=== PATIENT | male | born 1970 | race Caucasian/White ===

== ENCOUNTER 2021-01-09 08:34 | Emergency (ER) | payer MEDICAID ==
--- NOTE | 2021-01-09 08:52 | ED Physician Documentation ---
PD HPI ABD PAIN - Stated complaint Stated Complaint: ABD PX - History obtained from History obtained from: Patient (For about 4-5 weeks he has had pelvic pain radiating up towards the umbilicus and to either side. It is worse with bending and twisting.) - Additional information Additional information: He thinks it might be muscular. He is not eating and drinking well the past mostly because of anxiety and depression related to an ongoing divorce. Had remote open appendectomy at age 25. Otherwise no abdominal surgeries. No significant nausea, if he has some he thinks it is related to the divorce, not the abdominal pain. No weight loss. Review of Systems Ten Systems: 10 systems reviewed and negative Constitutional: reports: Reviewed and negative Throat: reports: Reviewed and negative Cardiac: reports: Reviewed and negative Respiratory: reports: Reviewed and negative PD PAST MEDICAL HISTORY - Past Medical History GI: GERD - Past Surgical History Past Surgical History: Yes General: Appendectomy - Present Medications Home Medications: Ambulatory Orders Medication Instructions Recorded Confirmed Budesonide [Ortikos] 9 mg PO DAILY #30 01/09/21 - Allergies Allergies/Adverse Reactions: Allergies Allergy/AdvReac Type Severity Reaction Status Date / Time No Known Drug Allergies Allergy Verified 01/09/21 08:56 - Social History Does the pt smoke?: Yes Smoking Status: Current every day smoker Does the pt drink ETOH?: Yes Does the pt have substance abuse?: No - Immunizations Immunizations are current?: Yes PD ED PE NORMAL - Vitals Vital signs reviewed: Yes - General General: Alert and oriented X 3, Other (Tearful at times with poor eye contact) - HEENT HEENT: PERRL, EOMI - Neck Neck: Supple, no meningeal sign, No bony TTP - Cardiac Cardiac: RRR, No murmur - Respiratory Respiratory: No respiratory distress, Clear bilaterally - Abdomen Abdomen: Normal bowel sounds, Soft, Non tender - Male Male : Other (No testicular swelling or TTP, nl lie, nl cremasters B) - Back Back: No CVA TTP, No spinal TTP - Derm Derm: Normal color, Warm and dry - Extremities Extremities: No edema, No calf tenderness / cord - Neuro Neuro: Alert and oriented X 3, Normal speech Results - Vitals Vitals: Vital Signs - 24 hr 01/09/21 01/09/21 01/09/21 08:40 09:00 11:15 Temperature 36.7 C Heart Rate 95 85 70 Respiratory 16 16 16 Rate Blood Pressure 144/98 H 117/80 110/70 O2 Saturation 96 95 Oxygen O2 Source Room air - Labs Labs: Laboratory Tests 01/09/21 01/09/21 09:05 09:05 WBC 16.6 H RBC 5.12 Hgb 15.9 Hct 45.7 MCV 89.3 MCH 31.1 H MCHC 34.8 RDW 12.8 Plt Count 385 MPV 8.7 Neut # (Auto) 12.9 H Lymph # (Auto) 2.4 [place] # (Auto) 0.9 Eos # (Auto) 0.2 Baso # (Auto) 0.1 Absolute Nucleated RBC 0.00 Nucleated RBC % 0.0 Sodium 141 Potassium 3.9 Chloride 102 Carbon Dioxide 23 Anion Gap 16.0 H BUN 17 Creatinine 0.7 Estimated GFR (MDRD) 119 Glucose 117 H Calcium 9.5 Total Bilirubin 0.9 AST 18 ALT 19 Alkaline Phosphatase 65 Total Protein 7.7 Albumin 4.1 Globulin 3.6 Albumin/Globulin Ratio 1.1 Lipase 47 PD MEDICAL DECISION MAKING - ED course ED course: 50-year-old gentleman presents with pelvic pain, normal testicular exam. CT consistent with colitis. The timeframe would suggest that infection is not on the differential. Will start oral budesonide pending follow-up and he knows he needs a colonoscopy. He talked at length with the perinatal social worker about his marital issues. Departure - Departure Disposition: 01 Home, Self Care Clinical Impression: Colitis, Grief reaction Condition: Good Record reviewed to determine appropriate education?: Yes Instructions: ED Abdominal Pain Unkn Cause Male Prescriptions: Budesonide [Ortikos] 9 mg PO DAILY #30 Comments: Work-up today demonstrates that your CAT scan shows some evidence of infla mmation of the colon. There are a variety of reasons for this that can happen, but seems reasonable to put you on the anti-inflammatory steroid until you follow-up. You do need to follow-up With your PCP and subsequently a bead supervisor or general surgeon and get repeat colonoscopy since it has been 10 years. Return if worsening. Discharge Date/Time: 01/09/21 11:34
[2021-01-09] MEDS ORDERED: IOVERSOL 320 100 ML VIAL IVP ONE ×2 (09:06→15:09)
[2021-01-09 09:14] LABS: BASOPHILS # (AUTO) 0.1 10^3/uL (0.0-0.1); BASOPHILS % (AUTO) 0.5 %; EOSINOPHILS # (AUTO) 0.2 10^3/uL (0.0-0.7); HGB - HEMOGLOBIN 15.9 g/dL (14.0-18.0); LYMPHOCYTES # (AUTO) 2.4 10^3/uL (1.5-3.5); LYMPHOCYTES % (AUTO) 14.7 %; MEAN CORPUSCULAR HEMOGLOBIN 31.1 pg (27.0-31.0); MEAN CORPUSCULAR HGB CONC 34.8 g/dL (32.0-36.0); MEAN CORPUSCULAR VOLUME 89.3 fL (80.0-94.0); MEAN PLATELET VOLUME 8.7 fL (7.4-11.4); MONOCYTES # (AUTO) 0.9 10^3/uL (0.0-1.0); MONOCYTES % (AUTO) 5.7 %; NEUTROPHILS # (AUTO) 12.9 10^3/uL (1.5-6.6); NEUTROPHILS % (AUTO) 77.7 %; PLT - PLATELET COUNT 385 10^3/uL (130-450); RED BLOOD COUNT 5.12 10^6/uL (4.70-6.10); RED CELL DISTRIBUTION WIDTH 12.8 % (12.0-15.0); WHITE BLOOD COUNT 16.6 x10^3/uL (4.8-10.8)
[2021-01-09 09:28] LABS: ALBUMIN 4.1 g/dL (3.2-5.5); ALBUMIN/GLOBULIN RATIO 1.1 (1.0-2.2); BILIRUBIN,TOTAL 0.9 mg/dL (0.2-1.0); CALCIUM 9.5 mg/dL (8.5-10.3); CREATININE 0.7 mg/dL (0.6-1.2); TOTAL PROTEIN 7.7 g/dL (6.7-8.2)
--- NOTE | 2021-01-09 10:49 | CT Report ---
PROCEDURE: Abdomen/Pelvis W INDICATIONS: iv only low abd pain CONTRAST: IV CONTRAST: Optiray 320 ml: 100 PO CONTRAST: *NO PO CONTRAST TECHNIQUE: After the administration of IV contrast, 5 mm thick sections acquired from the diaphragms to the symp hysis. 5 mm thick coronal and sagittal reformats were acquired. For radiation dose reduction, the f ollowing was used: automated exposure control, adjustment of mA and/or kV according to patient size. COMPARISON: None. FINDINGS: Image quality: Excellent. ABDOMEN: Lung bases: Lung bases are clear. Heart size is normal. Solid organs: Liver mildly prominent with steatosis. The spleen is normal in size and enhancement. Gallbladder is unremarkable Biliary system is non dilated. Pancreas enhances normally. No adrenal nodules. Kidneys demonstrate normal size and enhancement, without hydronephrosis. Incidental note o f a retroaortic left renal vein. Peritoneum and bowel: Bowel loops are nonobstructed. There is a minimal appearance of being within t he ascending and portions of the transverse colon without inflammatory change. No free fluid or air. Nodes and vessels: No retroperitoneal or mesenteric adenopathy by size criteria. Aorta and inferior vena cava are normal in size. Miscellaneous: No ventral hernias. PELVIS: Genitourinary: Bladder wall thickness is normal. Miscellaneous: Fat-containing inguinal hernias. Bones: No suspicious bony lesions. No vertebral body compression fractures. IMPRESSION: 1. Mild appearance of thickening within the ascending and transverse colon as above. No pericolonic i nflammatory change. This could be secondary to incomplete distention or very early appearance of coli tis and clinical correlation is recommended. Otherwise, no acute process is noted. Reviewed by: Aga Merida MD on 01/09/2021 9:48 AM [facility] Approved by: Aga Merida MD on 01/09/2021 9:48 AM [facility] Station ID: [id number]
[2021-01-09 11:33] VITALS: BP 110/70
== END 2021-01-09 11:34 | disposition home or self-care (01) ==
LOC: ED 08:34
DX: K52.9 Noninfective gastroenteritis and colitis, unspecified (principal); F43.23 Adjustment disorder with mixed anxiety and depressed mood; F17.200 Nicotine dependence, unspecified, uncomplicated
CPT/HCPCS: 36415; 74177; 80053; 83690; 85025; 99283; 99284; Q9967

== ENCOUNTER 2022-04-18 08:00 | Outpatient (CLI) | payer MEDICAID ==
--- NOTE | 2022-04-18 14:11 | XRAY Report ---
PROCEDURE: Knee 2 View RT INDICATIONS: PAIN IN RIGHT KNEE TECHNIQUE: 2 views of the right knee(s) were acquired. COMPARISON: None. FINDINGS: Bones: No fractures or dislocations. No suspicious bony lesions. Mild osteoarthritic degenerative c hanges noted in all 3 compartments of the right knee. Soft tissues: No joint effusion. No suspicious soft tissue calcifications. Mild prepatellar soft t issue swelling is noted. IMPRESSION: Mild right knee tricompartmental osteoarthritis. Mild prepatellar soft tissue swelling is noted. Finding is nonspecific but can be related to prepatel lar bursitis. Please correlate with clinical findings. Reviewed by: Rosemary Alfredo MD, PhD on 04/18/2022 2:10 PM PDT Approved by: Rosemary Alfredo MD, PhD on 04/18/2022 2:10 PM PDT Station ID: [id number]
== END 2022-04-18 23:59 | disposition home or self-care (01) ==
LOC: DI.N 08:00
PROVIDERS: ATTEND Physician Assistant Medical
DX: M17.11 Unilateral primary osteoarthritis, right knee (principal); M79.89 Other specified soft tissue disorders

== ENCOUNTER 2022-04-30 10:04 | Outpatient (CLI) | payer MEDICAID ==
--- NOTE | 2022-04-30 15:03 | Ultrasound Report ---
PROCEDURE: Chest INDICATIONS: LIPOMA BACK TECHNIQUE: Real-time scanning was performed, and a suitable site was marked by the telephone messenger for thoracentesis to be performed by the referring clinician. COMPARISON: None. FINDINGS: There is a 6.5 x 1.7 x 4.3 cm soft tissue mass in the region of clinical interest. Doppler evaluation demonstrates no significant internal vascularity or peripheral vascularity. IMPRESSION: Nonspecific 6.5 x 1.7 x 4.3 cm soft tissue density mass in the area of clinical interest. Lesion may represent a lipoma, however other etiologies including malignancy can't be differentiated by ultrasou nd imaging. Decision to biopsy should be based on clinical assessment. Reviewed by: Rosemary Alfredo MD, PhD on 04/30/2022 3:01 PM PDT Approved by: Rosemary Alfredo MD, PhD on 04/30/2022 3:01 PM PDT Station ID: [id number]
== END 2022-04-30 10:05 | disposition home or self-care (01) ==
LOC: DI 10:04
PROVIDERS: ATTEND Physician Assistant Medical
DX: D17.1 Benign lipomatous neoplasm of skin and subcutaneous tissue of trunk (principal); R22.2 Localized swelling, mass and lump, trunk

== ENCOUNTER 2022-06-11 08:21 | Outpatient (CLI) | payer MEDICAID | END 2022-06-11 08:22 | disposition home or self-care (01) | LOC: LAB.N 08:21 | PROVIDERS: ATTEND Surgery | DX: Z01.812 Encounter for preprocedural laboratory examination (principal); D17.1 Benign lipomatous neoplasm of skin and subcutaneous tissue of trunk; Z20.822 Contact with and (suspected) exposure to COVID-19 ==

== ENCOUNTER 2022-06-12 10:57 | Day surgery (SDC) | payer MEDICAID ==
[2022-06-12] MEDS ORDERED: LACTATED RINGERS 1,000 ML IV ONE (11:03)
--- NOTE | 2022-06-12 11:58 | ANESTHESIA ---
Pre-Anesthesia VS, & Labs - Diagnosis Lipoma back - Procedure Excision lipoma Vital Signs: Temp Pulse Resp BP Pulse Ox 36.4 C L 63 16 129/80 97 06/12/22 11:03 06/12/22 11:03 06/12/22 11:03 06/12/22 11:03 06/12/22 11:03 Height: 5 ft 7 in Weight (kg): 79.6 kg Body Mass Index: 27.4 BMI Classification: Overweight - NPO >8 hours - Lab Results Lab results reviewed: Yes Home Medications and Allergies Home Medications: Ambulatory Orders buPROPion [Wellbutrin Xl] 75 mg PO DAILY 06/10/22 hydrOXYzine HCL [Hydroxyzine HCl] 25 mg PO DAILY 06/12/22 buPROPion [Wellbutrin Xl] 75 mg PO DAILY 06/10/22 hydrOXYzine HCL [Hydroxyzine HCl] 25 mg PO DAILY 06/12/22 Allergies/Adverse Reactions: Allergies Allergy/AdvReac Type Severity Reaction Status Date / Time No Known Drug Allergies Allergy Verified 01/09/21 08:56 Anes History & Medical History - Anesthetic History Anesthesia Complications: reports: No previous complications Family history of Anesthesia Complications: Denies Family history of Malignant Hyperthermia: Denies - Medical History Cardiovascular: reports: None, High cholesterol Pulmonary: reports: None Gastrointestinal: reports: Chronic diarrhea Urinary: reports: None Neuro: reports: None Musculoskeletal: reports: None Blood Disorders: reports: None Skin: reports: None Smoking Status: Former smoker Psychosocial: reports: Depression, Anxiety, Alcohol, Cannabis History of Cancer?: No - Surgical History General: reports: Appendectomy, Colonoscopy Orthopedic: reports: Shoulder arthroplasty Exam General: Alert, Oriented x3 Dental: WNL Mouth Openin Fingerbreadth Neck Mobility: Normal Mallampati classification: III Thyromental Distance: 4-6 cm Respiratory: Lungs clear, Normal breath sounds Cardiovascular: Regular rate, Normal S1, Normal S2, No murmurs Mental/Cognitive Status: Alert/Oriented X3, Normal for patient Cognitive Status: Within normal limits Plan Anesthesia Type: General Consent for Procedure(s) Verified and Reviewed: Yes Code Status: Attempt Resuscitation ASA classification: 2-Mild systemic disease Is this case an emergency?: No
[2022-06-12] MEDS ORDERED: MORPHINE 2 MG/ML CARPUJECT IVP PRN ×2 (11:59→16:30)
[2022-06-12] MEDS ORDERED: fentaNYL 100 MCG/2 ML VIAL IVP PRN ×2 (11:59→16:30)
[2022-06-12] MEDS ORDERED: ePHEDrine 50 MG/ML VIAL IVP PRN ×2 (11:59→16:30)
[2022-06-12] MEDS ORDERED: HYDROmorphone 0.5 MG/0.5 ML SYRINGE IVP PRN ×2 (11:59→16:30)
[2022-06-12] MEDS ORDERED: NALOXONE 0.4 MG/ML VIAL IVP PRN ×2 (11:59→16:30)
[2022-06-12] MEDS ORDERED: ATROPINE ABBOJECT 1 MG/10 ML SYRINGE IVP PRN ×2 (11:59→16:30)
[2022-06-12] MEDS ORDERED: ONDANSETRON 4 MG/2 ML VIAL IVP PRN ×2 (11:59→16:30)
[2022-06-12] MEDS ORDERED: LACTATED RINGERS 1,000 ML IV SCH ×2 (12:00→16:30)
[2022-06-12] MEDS ORDERED: LIDOCAINE-MPF 2% 5 ML VIAL ONE (12:42)
[2022-06-12] MEDS ORDERED: DEXAMETHASONE 4 MG/ML VIAL ONE (12:42)
[2022-06-12] MEDS ORDERED: ONDANSETRON 4 MG/2 ML VIAL ONE (12:42)
[2022-06-12] MEDS ORDERED: PROPOFOL 200 MG/20 ML VIAL IVP ONE ×2 (12:42→14:42)
[2022-06-12] MEDS ORDERED: fentaNYL 100 MCG/2 ML VIAL ONE ×2 (12:43→16:18)
[2022-06-12] MEDS ORDERED: KETAMINE 500 MG/10 ML VIAL ONE (12:43)
[2022-06-12] MEDS ORDERED: MIDAZOLAM 2 MG/2 ML VIAL ONE (12:43)
[2022-06-12] MEDS ORDERED: SODIUM CHLORIDE 0.9% 10 ML VIAL IVP ONE (12:44)
[2022-06-12] MEDS ORDERED: BUPIVACAINE 0.25% PF 10 ML VIAL ONE (14:07)
[2022-06-12] MEDS ORDERED: LIDOCAINE 2%-EPI 1:100000 20 ML MDV ONE (14:07)
[2022-06-12] MEDS ORDERED: BUPIVACAINE 0.25% PF 30 ML VIAL SUBQ ONE (14:46)
[2022-06-12] MEDS ORDERED: LACTATED RINGERS 100 ML IV ONE (15:49)
[2022-06-12] MEDS ORDERED: oxyCODONE 5 MG TABLET PO PRN (16:05)
--- NOTE | 2022-06-12 16:16 | OPERATIVE REPORT ---
Operative Report - General Planned Procedure: excision left upper back 3 x 7 cm lipoma and excision mid lower back 3x 3 cm lipoma Pre-Op Diagnosis: growing and painful back lipomas Procedure Performed: as above 5 and 3 cm intermediate repair Post Op Diagnosis: symptomatic back lipomas - Procedure Note Primary Surgeon: kenney corral Anesthesia Technique: General LMA, Local Pathology: benign/ not sent Estimated Blood Loss (mL): 1 Drain/Tube Type: Other (none) Indications: growing and painful back lipomas Findings: as above Complications: none - Other Other Information/Narrative: Patient was properly identified brought to the operating room and placed in supine position. Laryngeal mask anesthesia was induced. Carefully repositioned right lateral decubitus. He was prepped and draped in a sterile fashion. Antibiotics were not given. The lipomas were marked prior to coming back to surgery. Local anesthetic was given. The left upper back lipoma was first addressed. Vertical incision was made. Lipoma was removed in its entirety with gentle retraction and cautery. Hemostasis was assured. Immediate repair was then performed. Skin flaps were closed back down with interrupted 2-0 Vicryl suture. Deep dermis was reapproximated with buried interrupted 2-0 Vicryl suture. Additional 3-0 Vicryl subdermal sutures were placed. Was closed with a running 4-0 Monocryl subcuticular suture. The mid lower back lipoma was then addressed. A vertical incision was again made. Lipoma was removed with gentle retraction and cautery. Dermis was closed with interrupted 2-0 Vicryl suture followed by interrupted 3-0 Vicryl suture. Skin was closed with a running 4-0 Monocryl subcuticular suture. Dressings were applied. He was repositioned supine awakened and brought to recovery in good condition.
--- NOTE | 2022-06-12 16:50 | ANESTHESIA POST OP EVALUATION ---
Anesthesia Post Eval - Post Anesthesia Eval Vitals: Last Vital Signs Temp 36.6 C 06/12/22 16:30 Pulse 52 L 06/12/22 16:30 Resp 14 06/12/22 16:30 BP 154/87 H 06/12/22 16:30 Pulse Ox 97 06/12/22 16:30 CV Function Including HR & BP: Stable Pain Control: Satisfactory Nausea & Vomiting: Negative Mental Status: Baseline Respiratory Status: Airway Patent Hydration Status: Satisfactory Anesthesia Complications: None
[2022-06-12 16:54] VITALS: BP 154/84
== END 2022-06-12 10:58 | disposition home or self-care (01) ==
LOC: SDS 10:57
PROVIDERS: ATTEND Surgery
DX: D17.1 Benign lipomatous neoplasm of skin and subcutaneous tissue of trunk (principal); Z87.891 Personal history of nicotine dependence
CPT/HCPCS: 21931; J7120

== ENCOUNTER 2022-09-19 08:32 | Emergency (ER) | payer MEDICAID ==
--- NOTE | 2022-09-19 08:41 | ED Physician Documentation ---
PD HPI ABD PAIN - Stated complaint Stated Complaint: ABNOMINAL PX - History obtained from History obtained from: Patient - History of Present Illness Timing - onset: How many weeks ago (2) Timing - duration: Weeks (2) Timing - details: Gradual onset (started later in day after lifting heavy totes and carrying objects.), Still present Quality: Aching, Dull, Pain Location: RLQ Radiation: Right flank Worsened by: Moving, Position. No: Eating, Breathing Associated symptoms: Loss of appetite. No: Fever, Nausea, Vomiting, Diarrhea, Constipation, Dysuria Review of Systems Constitutional: denies: Fever Nose: denies: Rhinorrhea / runny nose, Congestion Throat: denies: Sore throat Cardiac: denies: Chest pain / pressure, Palpitations Respiratory: denies: Cough GI: reports: Abdominal Pain, Nausea. denies: Abdominal Swelling, Vomiting, Constipation : denies: Dysuria PD PAST MEDICAL HISTORY - Past Medical History Cardiovascular: None, High cholesterol Respiratory: None Neuro: None GI: Chronic diarrhea : None Psych: Depression, Anxiety, Panic attacks, Post traumatic stress disorder Musculoskeletal: None Derm: None - Past Surgical History Past Surgical History: Yes General: Appendectomy, Colonoscopy Ortho: Shoulder arthroplasty - Present Medications Home Medications: Ambulatory Orders Medication Instructions Recorded Confirmed buPROPion [Wellbutrin Xl] 75 mg PO DAILY 06/10/22 06/12/22 hydrOXYzine HCL [Hydroxyzine HCl] 25 mg PO DAILY 06/12/22 06/12/22 oxyCODONE/ACET 5/325 [Percocet 5 1 each PO Q4-6H PRN #20 tablet 06/12/22 mg/325 mg] Docusate Sodium 100Mg Capsule 100 mg PO DAILY #20 cap 09/19/22 [Colace 100Mg Capsule] Naproxen 500 mg PO BID #20 tab 09/19/22 - Allergies Allergies/Adverse Reactions: Allergies Allergy/AdvReac Type Severity Reaction Status Date / Time No Known Drug Allergies Allergy Verified 01/09/21 08:56 - Social History Does the pt smoke?: Yes Smoking Status: Former smoker Does the pt drink ETOH?: Yes Does the pt have substance abuse?: No - Immunizations Immunizations are current?: Yes PD ED PE NORMAL - Vitals Vital signs reviewed: Yes - General General: Alert and oriented X 3, Well developed/nourished, Other (appearing unc omfortable due to abd and back pain.) - Neck Neck: Supple, no meningeal sign, No adenopathy - Cardiac Cardiac: RRR, No murmur - Respiratory Respiratory: Clear bilaterally - Abdomen Abdomen: Soft, Non distended, No organomegaly, Other (tender in right lower abd without percussion nor rebound tenderness. ) - Male Male : Deferred - Rectal Rectal: Deferred - Back Back: No CVA TTP - Derm Derm: Normal color, Warm and dry, No rash - Extremities Extremities: No edema, No calf tenderness / cord - Neuro Neuro: Alert and oriented X 3, No motor deficit, Normal speech Results - Vitals Vitals: Oxygen O2 Source Room air - Labs Labs: Laboratory Tests 09/19/22 09/19/22 09/19/22 09:05 09:10 09:35 WBC 8.4 RBC 4.86 Hgb 14.0 Hct 42.6 MCV 87.7 MCH 28.8 MCHC 32.9 RDW 13.1 Plt Count 377 MPV 9.5 Neut # (Auto) 4.9 Lymph # (Auto) 2.4 [place] # (Auto) 0.7 Eos # (Auto) 0.2 Baso # (Auto) 0.1 Absolute Nucleated RBC 0.00 Nucleated RBC % 0.0 Sodium 135 Potassium 4.0 Chloride 101 Carbon Dioxide 26 Anion Gap 8.0 BUN 14 Creatinine 0.7 Estimated GFR (MDRD) 118 Glucose 110 H Calcium 8.8 Total Bilirubin 0.5 AST 17 ALT 19 Alkaline Phosphatase 56 Total Protein 7.0 Albumin 4.0 Globulin 3.0 Albumin/Globulin Ratio 1.3 Lipase 43 Urine Color YELLOW Urine Clarity CLEAR Urine pH 5.5 Ur Specific [place] >=1.030 H Urine Protein NEGATIVE Urine Glucose (UA) NEGATIVE Urine Ketones NEGATIVE Urine Occult Blood NEGATIVE Urine Nitrite NEGATIVE Urine Bilirubin NEGATIVE Urine Urobilinogen 0.2 (NORMAL) Ur Leukocyte Esterase NEGATIVE Ur Microscopic Review NOT INDICATED Urine Culture Comments NOT INDICATED - Rads (name of study) abd /pelvic CT Radiology: Prelim report reviewed, See rad report PD MEDICAL DECISION MAKING - ED course Complexity details: reviewed results, considered differential (no ever, normal WBC. Subtle finding of possible colitis on CT. can treat with anti- inflammatories. Seems muscular actually so same meds. ), d/w patient Departure - Departure Disposition: 01 Home, Self Care Clinical Impression: Lower abdominal pain, Umbilical hernia Condition: Stable Record reviewed to determine appropriate education?: Yes Instructions: ED Hernia Inguinal Follow-Up: Sunni Schilling ARNP [Primary Care Provider] - [facility] [Provider Group] Prescriptions: Docusate Sodium 100Mg Capsule [Colace 100Mg Capsule] 100 mg PO DAILY #20 cap Naproxen 500 mg PO BID #20 tab Comments: Your CT scan shows a an umbilical hernia containing just soft tissue/fatty tissue. No signs of inflammation around it. This is close to your area of pain however and so may be causing your discomfort with an acute stretching of the s oft tissue leading to the hernia now. The CT scan also showed a possible area of mild inflammation along the sigmoid colon. This might be causing some of your discomfort but is probably more of a inconsequential finding. Your pain may be just more muscular from the lifting and just some abdominal wall strain. Collectively the above possibilities would all be treated with anti- inflammatories and moderated activity (if it hurts to do it do not do it). Add Tylenol if needed for pains. Also would suggest a mild stool softener as part of her treatment for hernia. Follow-up with the surgical office for more discussion about the hernia and whether it needs treatment or repair or just see if it quiets down and stops hurting. I included discharge instructions For inguinal hernia which is not what you have, you have an umbilical hernia, but the main information and things to watch for are the same. Discharge Date/Time: 09/19/22 11:58
[2022-09-19] MEDS ORDERED: KETOROLAC 15 MG/ML VIAL IVP STA (08:57)
[2022-09-19 09:12] LABS: BILIRUBIN,URINE NEGATIVE (NEGATIVE); GLUCOSE, URINE (UA) NEGATIVE (NEGATIVE); KETONES,URINE (UA) NEGATIVE (NEGATIVE); LEUKOCYTE ESTERASE, URINE NEGATIVE (NEGATIVE); NITRITE,URINE NEGATIVE (NEGATIVE); OCCULT BLOOD,URINE NEGATIVE (NEGATIVE); PH,URINE 5.5 PH (5.0-7.5); PROTEIN,URINE NEGATIVE (NEGATIVE); UROBILINOGEN,URINE 0.2 (NORMAL) E.U./dL (NORMAL)
[2022-09-19 09:16] LABS: CLARITY,URINE CLEAR (CLEAR)
[2022-09-19 09:27] LABS: BASOPHILS # (AUTO) 0.1 10^3/uL (0.0-0.1); EOSINOPHILS # (AUTO) 0.2 10^3/uL (0.0-0.7); EOSINOPHILS % (AUTO) 2.6 %; HCT - HEMATOCRIT 42.6 % (42.0-52.0); LYMPHOCYTES # (AUTO) 2.4 10^3/uL (1.5-3.5); LYMPHOCYTES % (AUTO) 28.9 %; MEAN CORPUSCULAR HEMOGLOBIN 28.8 pg (27.0-31.0); MEAN CORPUSCULAR HGB CONC 32.9 g/dL (32.0-36.0); MEAN CORPUSCULAR VOLUME 87.7 fL (80.0-94.0); MEAN PLATELET VOLUME 9.5 fL (7.4-11.4); MONOCYTES # (AUTO) 0.7 10^3/uL (0.0-1.0); MONOCYTES % (AUTO) 8.4 %; NEUTROPHILS # (AUTO) 4.9 10^3/uL (1.5-6.6); NEUTROPHILS % (AUTO) 58.6 %; PLT - PLATELET COUNT 377 10^3/uL (130-450); RED BLOOD COUNT 4.86 10^6/uL (4.70-6.10); RED CELL DISTRIBUTION WIDTH 13.1 % (12.0-15.0); WHITE BLOOD COUNT 8.4 x10^3/uL (4.8-10.8)
[2022-09-19] MEDS ORDERED: iohexoL-300 100 ML VIAL ONE (09:37)
[2022-09-19 09:52] LABS: ALBUMIN/GLOBULIN RATIO 1.3 (1.0-2.2); BILIRUBIN,TOTAL 0.5 mg/dL (0.2-1.0); CALCIUM 8.8 mg/dL (8.5-10.3); CREATININE 0.7 mg/dL (0.6-1.2)
[2022-09-19] MEDS ORDERED: iohexoL-300 100 ML VIAL IVP ONE (10:24)
--- NOTE | 2022-09-19 10:42 | CT Report ---
PROCEDURE: ABDOMEN/PELVIS W INDICATIONS: Abdominal pain, acute, lower abd CONTRAST: 100ml omni 300 TECHNIQUE: After the administration of intravenous contrast, 5 mm thick sections acquired from the diaphragms to the symphysis. 5 mm thick coronal and sagittal reformats were acquired. For radiation dose reducti on, the following was used: automated exposure control, adjustment of mA and/or kV according to hemanth ent size. COMPARISON: None. FINDINGS: Image quality: Excellent Lower chest: Suspected basal scarring/atelectasis. Solid organs: Liver is unremarkable. Pancreaticobiliary system is unremarkable. No splenomegaly. No a drenal nodules. No hydronephrosis. Vessels and lymph nodes: No abdominal aortic aneurysm. The main portal vein is patent. Retroaortic le ft renal vein. No pathologic adenopathy. Bowel and peritoneum: No bowel obstruction. No pathologic ascites. There are colonic diverticula. Mil d pericolonic fat stranding around the sigmoid colon and distal descending colon. Body wall: Fat-containing umbilical hernia. Pelvis: Prostate calcifications. Prostate is not well evaluated. Bladder is unremarkable. Small fat-c ontaining left inguinal hernia. Bones: Scattered degenerative changes without acute or suspicious osseous finding. Trace levoconvex s puneet curvature. IMPRESSION: Possible mild distal colitis. Correlate with any history of age-appropriate colonoscopy. Otherwise no acute abdominopelvic pathology. Other findings as above. Reviewed by: Ruiz Gotti MD on 09/19/2022 10:41 AM PDT Approved by: Ruiz Gotti MD on 09/19/2022 10:41 AM PDT Station ID: [id number]
[2022-09-19 11:26] VITALS: BP 120/111
== END 2022-09-19 11:58 | disposition home or self-care (01) ==
LOC: ED 08:32
DX: R10.31 Right lower quadrant pain (principal); K42.9 Umbilical hernia without obstruction or gangrene; R11.0 Nausea; M54.9 Dorsalgia, unspecified; Z90.49 Acquired absence of other specified parts of digestive tract; Z87.891 Personal history of nicotine dependence
CPT/HCPCS: 36415; 74177; 80053; 81003; 83690; 85025; 96374; 99284; Q9967; 81001; 87086